=== PATIENT | male | born 1985 | race Caucasian/White ===

== ENCOUNTER 2020-11-01 20:19 | Emergency (ER) | payer OTHER, SELFPAY ==
[2020-11-01 20:28] VITALS: BP 183/99; PULSE 87; RESP 18; TEMP 37; O2SAT 97; BMI 33.9
--- NOTE | 2020-11-01 20:51 | XR_ITS ---
WS: [id number] Right knee, 3 views, 11/01/2020 Clinical Data: fall/pain Comparison: None. Findings: No fractures or dislocations are seen. The joint spaces are normal. The patella is intact. The soft t issues are unremarkable. XR/XR knee RT 3V* [id number] Impression: Negative right knee.
--- NOTE | 2020-11-01 20:51 | XRR_ITS ---
PROCEDURE INFORMATION: Exam: XR Right Ankle Exam date and time: 11/01/2020 8:52 PM Age: 34 years old Clinical indication: Injury or trauma; Sprain or strain; Patient HX: Fall with twisting injury to right ankle; Additional info: Fall/ swelling TECHNIQUE: Imaging protocol: XR Right ankle. Views: 1 or 2 views. COMPARISON: No relevant prior studies available. FINDINGS: Bones/joints: Chronic healed avulsion fracture and/or ununited accessory ossification center and/or chronic posttraumatic arthritis over the inferior tip of the medial malleolus. Tiny calcaneal spur. Ossification/calcification over the Achilles tendon insertion on the posterior calcaneus consistent with enthesopathy. Soft tissues: Normal. XR/XR ankle RT 2V [id number] IMPRESSION: No acute findings.
[2020-11-01] MEDS: ibuprofen 800 mg tablet PO (21:03)
[2020-11-01] MEDS: HYDROcodone-acetaminophen 5-325 mg Tablet 1 TAB PO (22:16)
--- NOTE | 2020-11-01 22:28 | W.ED.FALL ---
HPI - Fall General: Chief Complaint: Fall Stated Complaint: right ankle injury Time Seen by Provider: 11/01/20 20:35 History of Present Illness: HPI Narrative: The patient is a 34-year-old male who comes in a couple hours after a fall where he fell off of a curb rolling his right ankle and falling on his right side. He has swelling moderately over his anterior talofibular ligament. Ankle ligaments grossly intact no slack or play. Neurovascularly intact distal to injury. His second area of complaint is right knee which also has no significant injury seen and ligaments are intact. MD complaint: fall Severity: moderate Associated symptoms-after fall: Denies abdominal pain, chest pain, confusion, difficulty walking, headache(s) or neck pain Review of Systems General: Reports: 10 or more systems reviewed and unremarkable except in HPI and below Const: Denies: fatigue Eyes: Denies: change in vision, blurry vision or eye redness ENMT: Denies: throat pain, swelling of lips/tongue, ear or mastoid pain or nasal congestion Card: Denies: chest pain, palpitations, irregular heart rhythm, edema, dyspnea on exertion or orthopnea Resp: Denies: dyspnea, productive cough or non-productive cough GI: Denies: abdominal pain, diarrhea or GI cramping : Denies: flank pain, urinary frequency or urinary urgency Musc: Denies: neck pain, back pain, extremity pain, joint pain, joint redness, limited range of motion or muscle weakness Skin/Breast: Denies: rash, pruritus, erythema, skin pain or skin tenderness Neuro: Denies: headache(s), numbness in extremities, weakness in extremities, sensory changes, difficulty walking, dizziness, confusion or Slurred speech present Psych: Denies: anxiety or depression Endo: Denies: polyuria All/Imm: Denies: urticaria, throat swelling or tongue swelling Physical Exam Const: COMMON NORMALS: no acute distress, average body habitus, patient oriented x3, no limitations, healthy appearing, alert and well nourished GENERAL APPEARANCE: cooperative, comfortable, well kempt and well developed ORIENTATION/CONSCIOUSNESS: Yes awake, Yes oriented to person, Yes oriented to place and Yes oriented to time HENMT: COMMON NORMALS: normocephalic, external ears normal and Normal external nose present HEAD & SCALP: normal to inspection and normocephalic NOSE: Normal external nose present EXTERNAL EAR: Yes external ears normal MOUTH: Normal oral and palatal mucosa present THROAT: posterior oropharynx normal Eye: COMMON NORMALS: Equal, round and reactive pupils present and EOMs intact bilaterally GENERAL EYE: appearance normal, both eyes and all related structures PUPIL: Yes Equal, round and reactive pupils present Neck/C-Spine: COMMON NORMALS: full ROM, no lymphadenopathy, no meningeal signs and no JVD GENERAL: Yes normal visual inspection Lymph: LYMPHATIC: no lymphadenopathy noted Chest: COMMONS NORMALS: normal inspection of the chest and normal palpation of entire chest wall Resp: COMMON NORMALS: normal respiratory effort, No retractions, No use of accessory muscles, clear to auscultation bilaterally and percussion normal EFFORT & INSPECTION: Yes able to speak in complete sentences AUSCULTATION: clear to auscultation bilaterally PERCUSSION: percussion normal Cardio: COMMON NORMALS: no JVD, regular rate, regular rhythm, S1 normal heart sound present, S2 normal heart sound present and Peripheral pulses 2+ throughout RATE: regular rate RHYTHM: regular rhythm HEART SOUNDS: S1 normal heart sound present and S2 normal heart sound present PERIPHERAL PULSES: Peripheral pulses 2+ throughout GI: COMMON NORMALS: Normal to inspection, nondistended, normoactive bowel sounds present, Soft to palpation, non-tender and no masses INSPECTION: Yes normal to inspection PALPATION: Yes Soft to palpation : COMMON NORMALS: Yes no CVA tenderness BLADDER/KIDNEY EXAM: Yes no CVA tenderness Back/Pelvis: COMMON NORMALS: no CVA tenderness, thoracic and lumbar spine normal to inspection, no thoracic nor lumbar tenderness and thoraco-lumbar ROM normal Extremity: COMMON NORMALS: normal to inspection, full ROM, capillary refill normal, no joint enlargement and no pedal edema NARRATIVE EXTREMITY EXAM: Normal except right ankle swelling over the anterior talofibular ligament and tenderness. Ankle joint intact with no significant laxity. He is not able to walk on this foot. Mild tenderness to right knee diffusely. No bruising or abrasions. Major ligaments intact. GENERAL: Yes normal exam except as noted Neuro: COMMON NORMALS: patient oriented x3, CN's II-XII intact bilaterally, moves all extremities, no focal motor deficits, no sensory deficits noted and gait normal SENSORIUM/ORIENTATION: Yes alert, Yes oriented to person, Yes oriented to place and Yes oriented to time MENINGEAL SIGNS: Yes no meningeal signs Psych: COMMON NORMALS: mental status grossly normal, Normal thought process present, cooperative, normal affect and speech normal APPEARANCE: Yes well kempt ATTITUDE: Yes calm SPEECH: Yes normal speech THOUGHT PROCESS: Normal thought process present Skin: COMMON NORMALS: no rashes or lesions noted GENERAL SKIN EXAM: no rashes or lesions noted Course Vital Signs: Vital signs: Vital Signs Temperature 98.6 F 11/01/20 20:28 Pulse Rate 87 11/01/20 20:28 Respiratory Rate 18 11/01/20 20:28 Blood Pressure 183/99 11/01/20 20:28 Pulse Oximetry 97 11/01/20 20:28 MDM - Fall MDM Narrative: Medical decision making narrative: The patient likely has an ankle sprain. X-ray negative for fracture. Mode wrap and crutches. Follow-up with primary care physician for MRI in a week if still in pain. Ibuprofen for pain Discharge Plan Discharge Patient Disposition: Home Clinical Impression: Ankle sprain Condition: Stable Prescriptions: [place] 5-325 mg tablet 1 tab PO Q6H PRN (Reason: pain) Qty: 10 RF: 0 Discharge Orders: Discharge ED (Routine); Ordered 11/01/20 Ordered By: Sadi Grider Discharge Diet: Advance as tolerated Discharge Activity: Limit activity as instructed and Use walker/crutches as instructed Patient Instructions: Ankle Sprain (ED) Activity Restrictions/Additional Instructions: You have sprained your right ankle. There are no fractures on x-ray. If you are still in pain in a week please get an MRI from your primary care physician as this is the only thing that we will be able to tell if you injured your ligament. Take hydrocodone only for severe pain and do not mix with drugs, alcohol, nor operate machinery while using this medication. Return to the ER with worsening symptoms Coding Level of Care Code ED Theatre Manager for Lavell Fwdom Exam Comprehensive
[2020-11-01 23:23] VITALS: BP 143/91; PULSE 71; RESP 16; TEMP 36.6; O2SAT 95
--- NOTE | 2020-11-02 10:44 | DCPLANNER ---
field training manager had message to speak with patient and discuss getting established with a primary care physician. field training manager called and spoke with patient's . field training manager was told that patients will take care of getting patient a primary care physician. If patients has trouble getting patient a primary care, than she stated that she would call correctional casework specialist for help in getting patient established.
== END 2020-11-01 23:23 | disposition home or self-care (01) ==
PROVIDERS: Emergency Provider Family Medicine
DX: S93.401A Sprain of unspecified ligament of right ankle, initial encounter (principal); X50.1XXA Overexertion from prolonged static or awkward postures, initial encounter
CPT/HCPCS: 12345; 29515; 73562; 73600; 99281; 99283; E0114

== ENCOUNTER 2022-04-11 16:49 | Emergency (ER) | payer OTHER, SELFPAY ==
[2022-04-11 18:10] VITALS: BP 161/82; PULSE 70; RESP 16; TEMP 37.1; O2SAT 97; BMI 35.5
--- NOTE | 2022-04-11 19:41 | XRR_ITS ---
PROCEDURE INFORMATION: Exam: XR Left Wrist Exam date and time: 04/11/2022 8:23 PM Age: 36 years old Clinical indication: Pain; Wrist; Left; Additional info: L wrist pain TECHNIQUE: Imaging protocol: Radiologic exam of the Left wrist. Views: 1 or 2 views. COMPARISON: No relevant prior studies available. FINDINGS: Bones/joints: Normal. Soft tissues: Normal. Other findings: Two views submitted. XR/XR wrist LT 2V [id number] IMPRESSION: 1. No acute findings. Limited exam with two views. 2. If there is a clinical concern for scaphoid fracture, followup/additional assessment may also be considered.
--- NOTE | 2022-04-11 19:41 | ED_ITS ---
HPI - Extremity Problem General: Chief complaint: Extremity Injury, Upper Stated complaint: Left hand pain Time Seen by Provider: 04/11/22 19:22 Course Vital Signs: Vital signs: Vital Signs Temperature 98.7 F 04/11/22 18:10 Pulse Rate 70 04/11/22 18:10 Respiratory Rate 16 04/11/22 18:10 Blood Pressure 161/82 04/11/22 18:10 Pulse Oximetry 97 04/11/22 18:10 Discharge Plan Discharge Condition: Stable Prescriptions: No Action [place] 5-325 mg tablet 1 tab PO Q6H PRN (Reason: pain) Qty: 10 0RF Coding Level of Care Code ED Filter Filler for Lavell Lance
[2022-04-11] MEDS: acetaminophen 500 mg Tablet PO (19:56)
--- NOTE | 2022-04-11 20:37 | W.ED.GENADLT ---
HPI - General Adult General: Chief complaint: Extremity Injury, Upper Stated complaint: Left hand pain Time Seen by Provider: 04/11/22 19:22 History of Present Illness: Patient is alert 36-year-old male without any significant past pressure presents emergency room for episode of L sided FOOSH injury. Patient tells me that he was leaning a side at the railing when he fell and landed on his left hand. Patient complains of ulnar left wrist tenderness palpation. Patient has been placed in a Velcro splint and has been having persistence of pain decided to come to the emergency room. Patient denies any head injuries or any anticoagulation use. Patient denies any chest pain, shortness breath, palpitation nausea/vomiting diarrhea melena/medic easier. No other focal complaints. Onset: 6pm yesterday Duration:ongoing Location:home Severity:moderate Associated symptoms: Deny chest pain, dyspnea, nausea, rash, palpitations or vomiting Review of Systems Const: Denies: fever(s) or chills Eyes: Denies: change in vision ENMT: Denies: mouth pain Card: Denies: chest pain or palpitations Resp: Denies: dyspnea or non-productive cough GI: Denies: abdominal pain, nausea, vomiting or diarrhea : Denies: dysuria Musc: Reports: extremity pain (+L wrist pain) Skin/Breast: Denies: rash or new lesions Neuro: Denies: weakness in extremities Psych: Reports: other (Normal mood) Monty/Lymph: Denies: easy bruising [facility] PFSH: Medical History (Updated 04/11/22 @ 20:39 by Shan Pierre MD) No pertinent past medical history Social History (Updated 04/11/22 @ 20:39 by Shan Pierre MD) Smoking and tobacco status: never smoked Alcohol intake: never Substance/Drug Use: never Physical Exam Const: COMMON NORMALS: alert HENMT: COMMON NORMALS: atraumatic HEAD & SCALP: atraumatic MOUTH: moist mucous membranes not abnormal Eye: COMMON NORMALS: EOMs intact bilaterally and conjunctivae normal CONJUNCTIVA: Yes conjunctivae normal Neck/C-Spine: COMMON NORMALS: full ROM and supple Resp: COMMON NORMALS: normal respiratory effort and clear to auscultation bilaterally AUSCULTATION: clear to auscultation bilaterally Cardio: COMMON NORMALS: regular rate RATE: regular rate GI: COMMON NORMALS: Soft to palpation and non-tender PALPATION: Yes Soft to palpation Extremity: COMMON NORMALS: full ROM OTHER: + Mild left ulnar wrist tenderness palpation, no scaphoid tenderness palpation, no distal radial head tenderness palpation, neurovascular sensation intact in the left hand, patient is able to perform okay/thumbs up/fist sign without difficulty. Cap refill less than 3 seconds left hand ecchymosis sensation intact in ulnar/median/radial distribution of the left hand Neuro: SENSORIUM/ORIENTATION: Yes alert MOTOR EXAM: No Abnormal motor strength present and Other motor observations present (no focal motor deficits) Psych: COMMON NORMALS: speech normal SPEECH: Yes normal speech MOOD & AFFECT: Yes euthymic mood Course Vital Signs: Vital signs: Vital Signs Temperature 98.7 F 04/11/22 18:10 Pulse Rate 70 04/11/22 18:10 Respiratory Rate 16 04/11/22 18:10 Blood Pressure 161/82 04/11/22 18:10 Pulse Oximetry 97 04/11/22 18:10 MDM - General Adult Medical Decision Making 36-year-old male presenting to the emergency room with complaints of ulnar wrist tenderness to palpation since yesterday at 6 PM. X-ray showed no focal findings. Patient still has tenderness palpation. Instructed patient to continue use the Velcro splint. Patient is instructed repeat x-ray in 1 week to ensure that there is no fracture that is missed today. Rx tylenol PRN pain Disposition: Discharge. Patient counseled regarding diagnostic impression, treatment plan. Patient given ED strict return precautions to return for continuation, worsening, or development of new symptoms. Instructed to f/u w/ PCP regarding symptoms today. Patient verbalized understanding. Lab Data Radiology Impressions Wrist X-Ray 04/11/22 19:41 IMPRESSION: 1. No acute findings. Limited exam with two views. 2. If there is a clinical concern for scaphoid fracture, followup/additional assessment may also be considered. Imaging Data Other Imaging: Radiologist's impression: Launch?[employer] [facility] [address] [place] [address] XRay Report Signed Patient: Polo Sebastian Unit #: [id number] : 1985 Age/Sex: 36 / M ADM Date: 04/11/22 Loc: ER Room/Bed: Attending Dr: Ordering Provider/Ordering MD: Shan Pierre MD Date of Service: 04/11/22 Procedure(s): XR wrist LT 2V [id number] Accession Number(s): [id number] Report Number: [id number] PROCEDURE INFORMATION: Exam: XR Left Wrist Exam date and time: 04/11/2022 8:23 PM Age: 36 years old Clinical indication: Pain; Wrist; Left; Additional info: L wrist pain TECHNIQUE: Imaging protocol: Radiologic exam of the Left wrist. Views: 1 or 2 views. COMPARISON: No relevant prior studies available. FINDINGS: Bones/joints: Normal. Soft tissues: Normal. Other findings: Two views submitted. XR/XR wrist LT 2V [id number] IMPRESSION: 1. No acute findings.? Limited exam with two views. 2. If there is a clinical concern for scaphoid fracture, followup/additional assessment may also be considered. ? Dictated By: Marya Chambers MD Signed By: Marya Chambers MD Signed Date/Time: 04/11/222119 DD/ 22 Discharge Plan Discharge Patient Disposition: Home Clinical Impression: Acute wrist pain Condition: Stable Prescriptions: No Action [place] 5-325 mg tablet 1 tab PO Q6H PRN (Reason: pain) Qty: 10 0RF Discharge Orders: Discharge ED (Routine); Ordered 04/11/22 Ordered By: Shan Pierre Discharge Diet: Advance as tolerated Discharge Activity: Increase activity as tolerated Activity Restrictions/Additional Instructions: Come back if you have any new or concerning issues. Please repeat wrist XR in 1 week to ensure there is no acute fracture. Coding Level of Care Code ED Mower Mechanic for Chg Fwd Exam Comprehensive
== END 2022-04-11 21:58 | disposition home or self-care (01) ==
PROVIDERS: Emergency Provider Emergency Medicine
DX: M25.532 Pain in left wrist (principal)
CPT/HCPCS: 73100; 99283